=== PATIENT | male | born 1965 | race Two or more races ===

== ENCOUNTER 2020-03-27 09:44 | Emergency (ER) | payer MEDICAID, OTHER ==
[~2020-03-27] VITALS: Ht 175.3 cm; Wt 97.1 kg
[2020-03-27 10:38] LABS: Hematocrit 47.9 % (41.0-53.0); Hemoglobin 15.3 g/dL (13.5-17.5); Mean Corpuscular Hemoglobin 27.5 pg (28.0-32.0); Mean Corpuscular Volume 85.9 fL (80.0-100.0); Platelet Count (auto) 387 10^3/uL (140-450); Red Blood Cells 5.58 10^6/uL (4.5-5.90); Red Cell Distribution Width 15.6 % (11.8-14.3); White Blood Cell 24.8 10^3/uL (4.4-10.8)
[2020-03-27 10:41] LABS: Basophils % (manual) 0 (0.0-2.0); Blast Cells 0; Eosinophils % (manual) 0 (0-7); Promyelocytes % 0; Reactive Lymphocytes 0
[2020-03-27 10:53] LABS: Albumin 2.2 g/dL (3.4-5.0); Calcium 7.9 mg/dL (8.5-10.1)
[2020-03-27 11:02] LABS: BUN/Creatinine Ratio 16.1; Bilirubin, Total 1.3 mg/dL (0.2-1.0); Total Protein 6.9 g/dL (6.4-8.2)
[2020-03-27 11:10] LABS: Potassium 5.3 mmol/L (3.5-5.1)
[2020-03-27] MEDS ORDERED: ETOMIDATE (2MG/ML) 20ML VIAL IV ONE (12:30)
[2020-03-27] MEDS ORDERED: SUCCINYLCHOLINE CHLORIDE 20 MG/ML 10ML VIAL IV ONE ×2 (12:30→12:45)
[2020-03-27] MEDS ORDERED: ETOMIDATE (2MG/ML) 20ML VIAL IV STA (12:42)
[2020-03-27] MEDS ORDERED: MIDAZOLAM DRIP 50 mg/50mL 50 ML IV ONE (12:44)
[2020-03-27] MEDS ORDERED: NOREPINEPHRINE 8 MG/250ML KIT 250 ML IV ONE (13:30)
[2020-03-27 13:32] VITALS: BP 100/63
[2020-03-27 14:12] LABS: Lymphocytes % (manual) 2 (10.0-50.0); Monocytes % (manual) 6 (0-12)
[2020-03-27 14:13] LABS: Band Neutrophils % (manual) 35; Metamyelocytes % 7; Myelocytes % 6
== END 2020-03-27 13:19 | disposition short-term general hospital (02) ==
LOC: ER 09:44 → EDBD 09:44 → ER 13:19
DX: A41.9 Sepsis, unspecified organism (principal); R65.21 Severe sepsis with septic shock; R41.82 Altered mental status, unspecified; K65.1 Peritoneal abscess; R07.9 Chest pain, unspecified; I10 Essential (primary) hypertension; Z20.822 Contact with and (suspected) exposure to COVID-19
CPT/HCPCS: 31500; 36415; 71045; 80053; 84484; 85007; 85027; 87070; 87205; 87426; 99291; J0330; J2250; 94002